=== PATIENT | male | born 1955 | race Caucasian/White ===

== ENCOUNTER → 2016-10-17 | Outpatient (CLI) | payer BC | END | disposition home or self-care (01) | LOC: RAD.S 07:25 | DX: K80.80 Other cholelithiasis without obstruction (principal); R79.89 Other specified abnormal findings of blood chemistry ==

== ENCOUNTER 2016-10-28 09:03 | Day surgery (SDC) | payer BC ==
[~2016-10-28] VITALS: Ht 188 cm; Wt 112.0 kg
--- NOTE | 2016-11-02 10:10 | OR ---
ADMIT: 10/28/2016 RM/LOC: [facility] MR#: [id number] [address] [id number] BETHANY HORVATH [address] [place] [address] Operative/Delivery Room Report SEX: M AGE: 60 : 1955 SURGERY DATE: 10/28/2016 SURGEON: Cliff Ponce MD PREOPERATIVE DIAGNOSIS: Cholelithiasis with cholecystitis. POSTOPERATIVE DIAGNOSIS: Cholelithiasis with cholecystitis. PROCEDURE: Laparoscopic cholecystectomy. RESEARCH INTERN: DEON Vega, whose assistance was necessary for laparoscopic visualization and tissue retraction. ANESTHESIA: General. ESTIMATED BLOOD LOSS: 25 mL. DESCRIPTION OF PROCEDURE: The patient was taken to the operating room and placed supine on the operating room table. General anesthesia was established. The abdomen was prepped and draped in the standard surgical fashion. A 5 mm infraumbilical incision was made in the skin. The fascia was grasped with Calderon clamp, and a Veress needle was advanced into the peritoneal cavity. Carbon dioxide was used to insufflate the abdomen to 15 mmHg pressure. The Veress needle was withdrawn, and a 5 mm Optiview trocar was placed. Next, an 11 mm subxiphoid port and two right lateral 5 mm ports were placed under visualization. The gallbladder was retracted cephalad. Calot's triangle was dissected. The cystic duct was skeletonized and the view of safety was obtained. The cystic duct was doubly clipped distally, singly clipped proximally, and divided. The cystic artery was skeletonized, doubly clipped proximally, singly clipped distally, and divided. The gallbladder was excised from the gallbladder fossa with Bovie cautery. It was placed in an EndoCatch bag and removed through the subxiphoid port site. The right upper quadrant was irrigated. There was no evidence of bleeding, no evidence of bile leak, and the clips remained intact on the cystic duct and artery. The ports were removed under visualization without evidence of bleeding. The abdomen was allowed to deflate. Skin edges were approximated with 4-0 Monocryl in a subcuticular fashion and Dermabond. Local anesthetic was injected at the incisions. Sponge, needle, and instrument counts were correct at the end of the case. The patient tolerated the procedure well and transferred to the recovery area in stable condition. Cliff Ponce MD/ victoriano JOB #: [id number] CC: Cliff Ponce, Attending Physician Woody Boothe, Family Physician
== END 2016-10-28 16:05 | disposition home or self-care (01) ==
LOC: SSS 09:03
PROC: 0FT44ZZ Resection of Gallbladder, Percutaneous Endoscopic Approach (ICD-10-PCS; principal; 2016-10-28)
DX: K80.10 Calculus of gallbladder with chronic cholecystitis without obstruction (principal); I10 Essential (primary) hypertension; M19.90 Unspecified osteoarthritis, unspecified site; K21.9 Gastro-esophageal reflux disease without esophagitis; Z98.890 Other specified postprocedural states; Z86.73 Personal history of transient ischemic attack (TIA), and cerebral infarction without residual deficits; Z87.891 Personal history of nicotine dependence; Z88.6 Allergy status to analgesic agent; Z88.8 Allergy status to other drugs, medicaments and biological substances; Z79.899 Other long term (current) drug therapy